=== PATIENT | female | born 2000 | race Caucasian/White ===

== ENCOUNTER → 2020-02-14 00:35 | Observation (INO) ==
[2020-02-14 00:35] LABS: Bilirubin,Urine Negative (Negative); Blood,Urine Negative (Negative); Clarity,Urine Clear (Clear); Color,Urine Colorless (Yellow); Glucose,Urine (UA) Normal (Normal); Ketones,Urine Negative (Negative); Leukocyte Esterase,Urine Negative (Negative); Nitrite,Urine Negative (Negative); PH,Urine 6.5 pH Units (5.0-8.0); Protein,Urine Negative (Neg-Trace); Specific Gravity,Urine 1.006 (1.010-1.025); Urobilinogen,Urine Normal (Normal)
== END | disposition home or self-care (01) ==
LOC: 1NENULAB
PROVIDERS: ADMIT Advanced Practice Midwife; ATTEND Advanced Practice Midwife

== ENCOUNTER → 2020-03-25 14:30 | Observation (INO) ==
[2020-03-24 11:38] LABS: Bilirubin,Urine Negative (Negative); Blood,Urine Negative (Negative); Clarity,Urine Clear (Clear); Color,Urine Colorless (Yellow); Glucose,Urine (UA) Normal (Normal); Ketones,Urine Negative (Negative); Leukocyte Esterase,Urine Negative (Negative); Nitrite,Urine Negative (Negative); PH,Urine 6.5 pH Units (5.0-8.0); Protein,Urine Negative (Neg-Trace); Specific Gravity,Urine 1.006 (1.010-1.025); Urobilinogen,Urine Normal (Normal)
[2020-03-24 12:30] LABS: Gardnerella DNA DETECTED (Not Detect); Trichomonas DNA Not Detected (Not Detect)
[2020-03-24 12:31] LABS: Candida DNA DETECTED (Not Detect)
[2020-03-24] MEDS: Betamethasone Acet/SodPhos 30 MG/5 ML VIAL IM SCH (12:44)
[2020-03-24] MEDS: metroNIDAZOLE 500 MG TABLET PO SCH ×2 (14:39→19:44)
[2020-03-24 15:37] LABS: Basophils # 0.1 K/mcL (0.0-0.2); Basophils % 0.5 %; Eosinophils % 0.3 %; Hematocrit 34.4 % (35.3-44.9); Hemoglobin 11.2 g/dL (11.5-15.4); Immature Granulocytes % 2.8 % (0-4); Lymphocytes # 1.9 K/mcL (0.6-4.6); Lymphocytes % 13.9 %; Mean Corpuscular HGB Conc 32.6 g/dL (31.6-35.5); Mean Corpuscular Hemoglobin 31.7 pg (28.0-33.3); Mean Corpuscular Volume 97.5 fL (83.0-100.0); Mean Platelet Volume 10.4 fL (9.4-12.4); Monocytes # 0.7 K/mcL (0.0-1.3); Monocytes % 5.3 %; Neutrophils # 10.4 K/mcL (1.6-8.9); Platelet Count 154 K/mcL (140-400); Red Blood Count 3.53 M/mcL (3.82-4.97); Red Cell Distribution Width 13.1 % (11.5-14.5); Segmented Neutrophils % 77.2 %; White Blood Count 13.4 K/mcL (4.3-11.1)
[2020-03-24] MEDS: NIFEdipine 10 MG CAPSULE PO SCH (19:44)
[2020-03-25] MEDS: NIFEdipine 10 MG CAPSULE PO SCH ×2 (00:42→05:53)
[2020-03-25] MEDS: metroNIDAZOLE 500 MG TABLET PO SCH (09:54)
[2020-03-25] MEDS: Betamethasone Acet/SodPhos 30 MG/5 ML VIAL IM SCH (12:49)
[~2020-03-25 14:30] MED LIST: NIFEdipine 10 MG CAPSULE PO ONE; Ringers Solution, Lactated 1,000 ML IVC ONE; Ringers Solution, Lactated 1,000 ML IVC SCH; Ringers Solution, Lactated 1,000 ML ONE; Terbutaline 1 MG/ML VIAL SQ ONE; metroNIDAZOLE 500 MG TABLET PO SCH
== END | disposition home or self-care (01) ==
LOC: 1NENULAB
PROVIDERS: ADMIT Obstetrics & Gynecology; ATTEND Obstetrics & Gynecology

== ENCOUNTER → 2020-04-03 18:10 | Observation (INO) ==
[2020-04-03 16:55] LABS: Bilirubin,Urine Negative (Negative); Blood,Urine Negative (Negative); Clarity,Urine Clear (Clear); Color,Urine Light-Yellow (Yellow); Glucose,Urine (UA) Normal (Normal); Ketones,Urine Negative (Negative); Leukocyte Esterase,Urine Negative (Negative); Nitrite,Urine Negative (Negative); PH,Urine 6.5 pH Units (5.0-8.0); Protein,Urine Negative (Neg-Trace); Urobilinogen,Urine Normal (Normal)
[~2020-04-03 18:10] MED LIST changes: +FLU Vac QV 20-21 (6Month+)/PF 0.5 ML SYRINGE IM ONE; -NIFEdipine 10 MG CAPSULE PO ONE; -Ringers Solution, Lactated 1,000 ML IVC ONE; -Ringers Solution, Lactated 1,000 ML IVC SCH; -Ringers Solution, Lactated 1,000 ML ONE; -Terbutaline 1 MG/ML VIAL SQ ONE; -metroNIDAZOLE 500 MG TABLET PO SCH
== END | disposition home or self-care (01) ==
LOC: 1NENULAB
PROVIDERS: ADMIT Registered Nurse; ATTEND Registered Nurse

== ENCOUNTER 2020-04-29 13:44 | Inpatient (IN) ==
[2020-04-29 11:04] LABS: Basophils # 0.1 K/mcL (0.0-0.2); Basophils % 0.5 %; Eosinophils % 0.3 %; Hematocrit 35.8 % (35.3-44.9); Immature Granulocytes % 1.8 % (0-4); Lymphocytes # 1.9 K/mcL (0.6-4.6); Mean Corpuscular HGB Conc 33.5 g/dL (31.6-35.5); Mean Corpuscular Hemoglobin 31.4 pg (28.0-33.3); Mean Corpuscular Volume 93.7 fL (83.0-100.0); Mean Platelet Volume 11.1 fL (9.4-12.4); Monocytes # 1.2 K/mcL (0.0-1.3); Monocytes % 10.7 %; Neutrophils # 7.7 K/mcL (1.6-8.9); Platelet Count 202 K/mcL (140-400); Red Blood Count 3.82 M/mcL (3.82-4.97); Red Cell Distribution Width 13.2 % (11.5-14.5); Segmented Neutrophils % 69.7 %; White Blood Count 11.1 K/mcL (4.3-11.1)
[2020-04-29 11:11] LABS: Amphetamine Screen,Urine Negative ng/mL (Cutoff=1000); Barbiturate Screen,Urine Negative ng/mL (Cutoff=200); Benzodiazepines Screen,Urine Negative ng/mL (Cutoff=200); Cannabinoid Screen,Urine Negative ng/mL (Cutoff = 50); Cocaine Screen,Urine Negative ng/mL (Cutoff= 300); Opiate Screen,Urine Negative ng/mL (Cutoff=300); Phencyclidine Screen,Urine Negative ng/mL (Cutoff=25)
[~2020-04-29 13:44] MED LIST changes: +*HR* FentaNYL (PF) 100 MCG/2 ML VIAL IVP PRN; +EPHEDrine 50 MG/ML VIAL IVP PRN; +Epidural Premix (fent/bupiv) 110 ML EP SCH; -FLU Vac QV 20-21 (6Month+)/PF 0.5 ML SYRINGE IM ONE; +Famotidine 20 MG/2 ML VIAL IVP PRN; +Metoclopramide 10 MG/2 ML VIAL IVP PRN; +Naloxone 0.4 MG/ML INJ IVP PRN; +Ondansetron 4 MG/2 ML VIAL IVP PRN; +Ringers Solution, Lactated 1,000 ML IVC SCH
[2020-04-29] MEDS ORDERED: Oxytocin 20 units/ LR 1000 mL 20 UNIT/1,000 ML BAG IVC SCH ×2 (13:45→21:36)
[2020-04-29] MEDS ORDERED: Methylergonovine 0.2 MG/ML AMPUL IM ONE ×2 (18:12→19:17)
[2020-04-29] MEDS ORDERED: Benzocaine/Menthol 56 GM AEROSOL SPRAY TP PRN (21:36)
[2020-04-29] MEDS ORDERED: Measles/Mumps/Rubella Vacc 0.5 ML VIAL SQ PRN (21:36)
[2020-04-29] MEDS ORDERED: Lanolin 7 G OINT...G. TP PRN (21:36)
[2020-04-29] MEDS: Ibuprofen 600 MG TABLET PO PRN (22:21)
[2020-04-30] MEDS: Acetaminophen 325 MG TABLET PO PRN ×2 (03:37→12:58)
[2020-04-30 06:51] LABS: Basophils # 0.1 K/mcL (0.0-0.2); Basophils % 0.3 %; Eosinophils # 0.1 K/mcL (0.0-0.6); Eosinophils % 0.4 %; Hematocrit 30.1 % (35.3-44.9); Immature Granulocytes % 0.9 % (0-4); Lymphocytes # 2.3 K/mcL (0.6-4.6); Lymphocytes % 12.5 %; Mean Corpuscular HGB Conc 33.6 g/dL (31.6-35.5); Mean Corpuscular Hemoglobin 32.7 pg (28.0-33.3); Mean Corpuscular Volume 97.4 fL (83.0-100.0); Mean Platelet Volume 11.2 fL (9.4-12.4); Monocytes % 11.2 %; Neutrophils # 13.5 K/mcL (1.6-8.9); Platelet Count 168 K/mcL (140-400); Red Blood Count 3.09 M/mcL (3.82-4.97); Red Cell Distribution Width 13.2 % (11.5-14.5); Segmented Neutrophils % 74.7 %
[2020-04-30 06:55] LABS: Hemoglobin 10.1 g/dL (11.5-15.4)
[2020-04-30] MEDS: Ibuprofen 600 MG TABLET PO PRN (07:58)
[2020-04-30] MEDS ORDERED: Prenatal Vit/FA 1 EACH TABLET PO SCH (09:00)
[2020-04-30 16:03] VITALS: BP 102/68
== END 2020-04-30 19:18 | disposition home or self-care (01) | DRG 560 ==
LOC: 1NENULAB → 1NENUOBS 20:39
PROVIDERS: ADMIT Obstetrics & Gynecology; ATTEND Obstetrics & Gynecology

== ENCOUNTER → 2021-09-01 01:50 | Observation (INO) ==
[2021-09-01 00:27] LABS: Bacteria,Urine Few per hpf (None-Few); Bilirubin,Urine Negative (Negative); Blood,Urine Negative (Negative); Clarity,Urine Turbid (Clear); Color,Urine Light-Yellow (Yellow); Glucose,Urine (UA) Normal (Normal); Ketones,Urine Negative (Negative); Leukocyte Esterase,Urine Small (Negative); Mucus,Urine Few per lpf (None-Few); Nitrite,Urine Negative (Negative); Protein,Urine Negative (Neg-Trace); RBC,Urine 0-3 per hpf (0-3); Specific Gravity,Urine 1.006 (1.010-1.025); Squamous Epithelial Cell,Urine Few per hpf (None-Few); Urobilinogen,Urine Normal (Normal); WBC,Urine 0-3 per hpf (0-3)
== END | disposition home or self-care (01) ==
LOC: 1NENULAB
PROVIDERS: ADMIT Registered Nurse; ATTEND Registered Nurse

== ENCOUNTER 2021-09-08 05:56 | Inpatient (IN) ==
[2021-09-08] MEDS ORDERED: *HR* Nalbuphine 10 MG/ML AMPUL IV PRN (06:10)
[2021-09-08] MEDS ORDERED: Famotidine 20 MG/2 ML VIAL IVP PRN (06:10)
[2021-09-08] MEDS ORDERED: Metoclopramide 10 MG/2 ML VIAL IVP PRN (06:10)
[2021-09-08] MEDS ORDERED: miSOPROStoL 25 MCG TABLET PO PRN (06:10)
[2021-09-08] MEDS ORDERED: Naloxone 0.4 MG/ML INJ IVP PRN (06:10)
[2021-09-08 07:00] LABS: Basophils # 0.1 K/mcL (0.0-0.2); Basophils % 0.5 %; Eosinophils # 0.1 K/mcL (0.0-0.6); Eosinophils % 0.5 %; Hematocrit 34.3 % (35.3-44.9); Hemoglobin 11.6 g/dL (11.5-15.4); Immature Granulocytes % 1.7 % (0-4); Lymphocytes # 2.4 K/mcL (0.6-4.6); Lymphocytes % 25.4 %; Mean Corpuscular HGB Conc 33.8 g/dL (31.6-35.5); Mean Corpuscular Hemoglobin 30.4 pg (28.0-33.3); Mean Corpuscular Volume 89.8 fL (83.0-100.0); Mean Platelet Volume 11.1 fL (9.4-12.4); Monocytes # 0.8 K/mcL (0.0-1.3); Monocytes % 8.5 %; Neutrophils # 5.9 K/mcL (1.6-8.9); Platelet Count 192 K/mcL (140-400); Red Blood Count 3.82 M/mcL (3.82-4.97); Red Cell Distribution Width 13.9 % (11.5-14.5); Segmented Neutrophils % 63.4 %; White Blood Count 9.3 K/mcL (4.3-11.1)
[2021-09-08] MEDS ORDERED: EPHEDrine 50 MG/ML VIAL IVP PRN (07:19)
[2021-09-08] MEDS ORDERED: Epidural Premix (fent/bupiv) 110 ML EP SCH (07:30)
[2021-09-08 07:47] LABS: Influenza A PCR Negative (Negative); Influenza B PCR Negative (Negative); Resp. Syncytial Virus PCR Negative (Negative)
[2021-09-08 08:06] LABS: SARS-CoV-2 by PCR (In House) Negative (Negative)
[2021-09-08] MEDS: Ringers Solution, Lactated 1,000 ML IVC SCH ×2 (08:10→16:44)
[2021-09-08 09:22] LABS: Amphetamine Screen,Urine Negative ng/mL (Cutoff=1000); Barbiturate Screen,Urine Negative ng/mL (Cutoff=200); Benzodiazepines Screen,Urine Negative ng/mL (Cutoff=200); Cannabinoid Screen,Urine Negative ng/mL (Cutoff = 50); Cocaine Screen,Urine Negative ng/mL (Cutoff= 300); Opiate Screen,Urine Negative ng/mL (Cutoff=300); Phencyclidine Screen,Urine Negative ng/mL (Cutoff=25)
[2021-09-08] MEDS ORDERED: Oxytocin 30 UNIT/503 ML BAG IVC SCH ×2 (12:45→20:32)
[2021-09-08] MEDS ORDERED: Ibuprofen 600 MG TABLET PO ONE (18:28)
[2021-09-08] MEDS ORDERED: Lanolin 7 G OINT...G. TP PRN (20:32)
[2021-09-08] MEDS ORDERED: *HR* OxyCODONE Immed Rel 5 MG TABLET PO PRN (20:32)
[2021-09-08] MEDS ORDERED: Benzocaine/Menthol 56 GM AEROSOL SPRAY TP PRN (20:32)
[2021-09-08] MEDS: Ibuprofen 600 MG TABLET PO SCH (22:09)
[2021-09-08] MEDS: Acetaminophen 325 MG TABLET PO SCH (22:10)
[2021-09-09] MEDS: Acetaminophen 325 MG TABLET PO SCH ×2 (06:24→12:50)
[2021-09-09] MEDS: Ibuprofen 600 MG TABLET PO SCH ×2 (06:24→12:50)
[2021-09-09 06:56] VITALS: BP 111/72; PULSE 80; TEMP 97.5; O2SAT 98
[2021-09-09] MEDS ORDERED: Prenatal Vit/FA 1 EACH TABLET PO SCH (09:00)
[2021-09-09] MEDS ORDERED: *HR* HYDROmorphone (PF) 1 MG/ML SYRINGE IVP ONE (15:39)
== END 2021-09-09 19:01 | disposition home or self-care (01) | DRG 560 ==
LOC: 1NENULAB 05:56 → 1NENUOBS 20:33
PROVIDERS: ADMIT Advanced Practice Midwife; ATTEND Advanced Practice Midwife